=== PATIENT | female | born 1960 | race Caucasian/White ===

== ENCOUNTER 2022-12-30 15:48 | Emergency (ER) | payer OTHER, SELFPAY ==
[2022-12-30] VITALS (12 sets, daily range): BP systolic 121–143; BP diastolic 67–75; PULSE 66–89; RESP 15–21; TEMP 36.8; O2SAT 94–97; BMI 21.2
--- NOTE | 2022-12-30 16:06 | DI.CT.S_ITS ---
PROCEDURE: CT HEAD/BRAIN WO CON INDICATIONS: LOPEZ:h/o subdural / subarachnoid, just d/c from [facility] TECHNIQUE: Noncontrast 4.5 mm thick angled axial sections acquired from the foramen magnum to the vertex, with coronal and sagittal reformats. For radiation dose reduction, the following was used: automated exposure control, adjustment of mA and/or kV according to patient size. COMPARISON: None. FINDINGS: Image quality: Excellent. CSF spaces: There is right frontal subdural hematoma measuring 5 mm in thickness along the right cerebral convexity and tentorium. Mixed attenuation in subdural hematomas suggest acute bleed superimposed on subacute bleed. There is also subarachnoid hemorrhage in the frontal lobes bilaterally. Basal cisterns are patent. The ventricles are symmetric in size and shape. Brain: Bilateral makes subarachnoid in intraparenchymal hematomas are present involving the frontal lobes, right greater than left. Hypodensities in frontal lobes bilaterally are consistent with contusions. There is mass effect causing leftward midline shift measuring 18 mm. The abnormality in the right frontal area measures 5.6 x 5.6 cm. Abnormality in the left frontal lobe measures 2.0 x 2.6 cm. There is likely acute hemorrhage with hyperdense blood in frontal lobes superimposed on subacute hemorrhage. Hypodensity in the left cerebellum is noted with small foci of hyperdensity, likely secondary to in subacute hemorrhagic contusion. No intracranial masses. There is cerebral volume loss for age, with resultant ventricular and sulcal prominence. There are periventricular and deep white matter chronic small vessel ischemic changes. There is intracranial internal carotid artery atherosclerosis. Skull and face: There is nondisplaced fracture in the left occipital bone. A skin staple is seen in the left occipital area. Sinuses: Visualized sinuses and mastoids are clear. IMPRESSION: There is intracranial bleed bilaterally. 1. There is mixed subarachnoid and intraparenchymal hematomas in frontal lobes, larger on the right and small on the left. There is significant mass effect with 18 mm midline shift consistent with subfalcine herniation. Mixed attenuation suggesting acute bleed superimposed on subacute bleed. 2. Involving left cerebellar intraparenchymal hematoma. 3. Subdural hematoma in the right hemisphere measuring 5 mm in thickness. Mixed attenuation suggesting acute bleed superimposed on chronic bleed. 4. Nondisplaced fracture in the left occipital bone The result was discussed with Dr. Hairston in ER. Dictated by: Harish Nelson M.D. on 12/30/2022 at 16:22 Approved by: Harish Nelson M.D. on 12/30/2022 at 16:36
--- NOTE | 2022-12-30 16:30 | ED.HA ---
HPI - Headache General Chief Complaint: Headache Stated Complaint: headache, sent home from [facility] yesterday Time Seen by Provider: 12/30/22 16:21 Mode of arrival: Ambulatory History of Present Illness HPI Narrative: This is a 62-year-old female with history of traumatic head bleed on 12/26/2022 while ice skating. Patient had no reported medical issues prior to this. She had right frontal hemorrhagic contusion 4 x 3 x 3.4 cm with a small left inferior frontal lobe contusion 2.1 cm with moderate local mass effect 5 mm right to left midline shift any stable but slightly enlarging 2.5 cm hypodensity left cerebellum. She had some asymmetric effacement of right cerebral sulci. Patient was treated at [facility] in [place], was discharged home on oral Keppra for potential seizure prophylaxis. Patient states she had acute onset of headache today describes 11/21. She has not had any acute vision changes, she is had nausea but no vomiting. No chest pain, no shortness of breath, no numbness, tingling or weakness. She describes dizziness when moving from position from lying to sitting or sitting to standing. She states that was present before she left the hospital in [place]. Family assist her with movement. She is not appreciate any weakness left versus right or new balance or gait issues other than her dizziness. Patient is not anticoagulated and was not prior. No known drug allergies. Denies tobacco, alcohol or illicit. She is accompanied by her and daughter who state she appears to be at her normal baseline from discharge. She is had Tylenol for pain but no other medications for headaches. Related Data Allergies Allergy/AdvReac Type Severity Reaction Status Date / Time No Known Drug Allergies Allergy Verified 12/30/22 16:24 Review of Systems Review of Systems ROS Unobtainable: All systems reviewed & are unremarkable except as noted in HPI and below Patient History Social History Smoking Status: Never smoker Smoking Status: Never smoker alcohol intake frequency: 0-2 drinks per day Substance Use Type: does not use Exam Initial Vital Signs Initial Vital Signs: Vital Signs Temperature 98.3 F 12/30/22 15:59 Pulse Rate 89 12/30/22 15:59 Respiratory Rate 20 12/30/22 15:59 Blood Pressure 121/68 12/30/22 15:59 Pulse Oximetry 97 12/30/22 15:59 Oxygen Delivery Method Room Air 12/30/22 15:59 Course Orders Ordered: ED Orders 12/30/22 16:06 CT head/brain wo con Stat 12/30/22 16:21 EKG-12 Lead Stat 12/30/22 16:50 Complete Blood Count AUTO DIFF Stat Comprehensive Metabolic Panel Stat Ethanol (ETOH) Stat Lactate (Lactic Acid) Stat Lipase Stat PTT Partial Thromboplastin Luciano Stat Prothrombin Time INR Stat Type and Screen Stat Discontinued Medications Hydromorphone HCl (Hydromorphone 0.5 Mg Inj) 0.5 mg IV NOW ONE Stop: 12/30/22 17:20 Last Admin: 12/30/22 17:28 Dose: Not Given Documented By: AMV Lidocaine HCl (Lidocaine 2% Inj Sdv 5ml) 5 ml INJ INTRA-OP ONE Stop: 12/30/22 17:21 Last Admin: 12/30/22 17:33 Dose: Not Given Documented By: AMV Morphine Sulfate (Morphine 4 Mg/Ml Inj) 4 mg IV NOW ONE Stop: 12/30/22 16:49 Last Admin: 12/30/22 16:58 Dose: 4 mg Documented By: AMV Morphine Sulfate (Morphine 2 Mg/Ml Inj) 2 mg IV NOW ONE Stop: 12/30/22 17:23 Last Admin: 12/30/22 17:28 Dose: 2 mg Documented By: AMV Ondansetron HCl (Ondansetron 4 Mg/2 Ml Inj) 4 mg IV NOW ONE Stop: 12/30/22 16:49 Last Admin: 12/30/22 16:59 Dose: 4 mg Documented By: AMV Vital Signs Vital signs: Vital Signs - 8 hr 12/30/22 15:59 12/30/22 16:10 12/30/22 16:33 Temperature 98.3 F Pulse Rate 89 78 72 Respiratory Rate 20 21 Blood Pressure 121/68 Pulse Oximetry 97 96 Oxygen Delivery Method Room Air 12/30/22 16:35 12/30/22 16:35 12/30/22 16:40 Temperature Pulse Rate 71 78 Respiratory Rate 19 21 Blood Pressure 134/69 Pulse Oximetry 97 97 Oxygen Delivery Method 12/30/22 16:50 12/30/22 17:00 12/30/22 17:00 Temperature Pulse Rate 75 72 Respiratory Rate 21 19 Blood Pressure 143/70 H Pulse Oximetry 97 97 Oxygen Delivery Method Room Air 12/30/22 17:05 12/30/22 17:05 12/30/22 17:10 Temperature Pulse Rate 73 Respiratory Rate 16 Blood Pressure 133/75 138/72 Pulse Oximetry 94 Oxygen Delivery Method 12/30/22 17:10 12/30/22 17:15 12/30/22 17:15 Temperature Pulse Rate 70 66 Respiratory Rate 16 15 Blood Pressure 138/68 Pulse Oximetry 97 96 Oxygen Delivery Method 12/30/22 17:20 12/30/22 17:20 12/30/22 17:25 Temperature Pulse Rate 67 69 Respiratory Rate 16 20 Blood Pressure 135/67 Pulse Oximetry 96 96 Oxygen Delivery Method 12/30/22 17:25 Temperature Pulse Rate Respiratory Rate Blood Pressure 140/69 Pulse Oximetry Oxygen Delivery Method MDM - Headache Lab Data 12/30/22 16:50 12/30/22 16:50 Labs: Lab Results 12/30/22 12/30/22 12/30/22 Range/Units 16:50 16:50 16:50 WBC 13.6 H (4.5-11.0) X10^3/uL RBC 4.28 (4.0-5.2) X10^6/uL Hgb 12.8 (12.0-16.0) g/dL Hct 37.6 (36-46) % MCV 87.8 (80-100) fL MCH 29.9 (26-34) PG MCHC 34.0 (30-36) % RDW 12.5 (11.6-14.8) % Plt Count 262 (150-400) X10^3/uL Neut % (Auto) 84.0 H (50-75) % Lymph % (Auto) 7.2 L (25-40) % [place] % (Auto) 8.3 (3-14) % Eos % (Auto) 0.2 L (2-4) % Baso % (Auto) 0.3 (0-2) % Neut # (Auto) 80664 H (3661-4281) /uL Lymph # (Auto) 1000 L (5279-8807) /uL [place] # (Auto) 1100 H (0-900) /uL Eos # (Auto) 0 (0-450) /uL Baso # (Auto) 0 (0-100) /uL PT 13.9 H (10.1-12.7) SECONDS INR 1.2 (0.9-1.3) APTT 31 (26-36) SECONDS Sodium 137 (137-145) mmol/L Potassium 3.1 L (3.4-5.1) mmol/L Chloride 99 (98-107) mmol/L Carbon Dioxide 29 (22-32) mmol/L BUN 16 (7-17) mg/dL Creatinine 0.59 (0.52-1.04) mg/dL Estimated GFR > 60 (>60) mL/min BUN/Creatinine Ratio 27.1 H (6-22) Glucose 111 H (80-110) mg/dL Lactate (0.7-2.1) mmol/L Calcium 9.0 (8.4-10.2) mg/dL Total Bilirubin 1.3 (0.2-1.3) mg/dL AST 42 H (14-36) IU/L ALT 50 H (<35) IU/L Alkaline Phosphatase 64 (38-126) U/L Total Protein 7.5 (6.3-8.2) g/dL Albumin 4.1 (3.5-5.0) g/dL Globulin 3.4 (1.7-4.1) g/dL Albumin/Globulin Ratio 1.2 (1.0-2.8) Lipase 211 (23-300) U/L Ethyl Alcohol < 10 ( - 10) mg/dL Blood Type Antibody Screen 12/30/22 12/30/22 Range/Units 16:50 16:50 WBC (4.5-11.0) X10^3/uL RBC (4.0-5.2) X10^6/uL Hgb (12.0-16.0) g/dL Hct (36-46) % MCV (80-100) fL MCH (26-34) PG MCHC (30-36) % RDW (11.6-14.8) % Plt Count (150-400) X10^3/uL Neut % (Auto) (50-75) % Lymph % (Auto) (25-40) % [place] % (Auto) (3-14) % Eos % (Auto) (2-4) % Baso % (Auto) (0-2) % Neut # (Auto) (1781-8279) /uL Lymph # (Auto) (2662-5187) /uL [place] # (Auto) (0-900) /uL Eos # (Auto) (0-450) /uL Baso # (Auto) (0-100) /uL PT (10.1-12.7) SECONDS INR (0.9-1.3) APTT (26-36) SECONDS Sodium (137-145) mmol/L Potassium (3.4-5.1) mmol/L Chloride (98-107) mmol/L Carbon Dioxide (22-32) mmol/L BUN (7-17) mg/dL Creatinine (0.52-1.04) mg/dL Estimated GFR (>60) mL/min BUN/Creatinine Ratio (6-22) Glucose (80-110) mg/dL Lactate 1.4 (0.7-2.1) mmol/L Calcium (8.4-10.2) mg/dL Total Bilirubin (0.2-1.3) mg/dL AST (14-36) IU/L ALT (<35) IU/L Alkaline Phosphatase (38-126) U/L Total Protein (6.3-8.2) g/dL Albumin (3.5-5.0) g/dL Globulin (1.7-4.1) g/dL Albumin/Globulin Ratio (1.0-2.8) Lipase (23-300) U/L Ethyl Alcohol ( - 10) mg/dL Blood Type A Positive Antibody Screen Negative Imaging Data CT scan - head: Radiologist's Impression: Close Head CT (Signed) Harish Nelson - 12/30/22 Launch?[place] [id number] CT Scan Report Signed Patient: Fernanda Gay MR#: [id number] : 1960 Acct:[id number] Age/Sex: 62 / F Date of Service: 12/30/22 Loc: ED Accession Number: [id number] ?? Procedure: CT head/brain wo con Ordering Provider: Verónica Hairston D.O. PROCEDURE:? CT HEAD/BRAIN WO CON ? INDICATIONS:? LOPEZ:h/o subdural / subarachnoid, just d/c from [facility]- ? TECHNIQUE:? Noncontrast 4.5 mm thick angled axial sections acquired from the foramen magnum to the vertex, with coronal and sagittal reformats.? For radiation dose reduction, the following was used:? automated exposure control, adjustment of mA and/or kV according to patient size.? ? COMPARISON:? None. ? FINDINGS:? Image quality:? Excellent.? ? CSF spaces:? There is right frontal subdural hematoma measuring 5 mm in thickness along the right cerebral convexity and tentorium.? Mixed attenuation in subdural hematomas suggest acute bleed superimposed on subacute bleed.? ? There is also subarachnoid hemorrhage in the frontal lobes bilaterally. ? Basal cisterns are patent.? The ventricles are symmetric in size and shape.? ? Brain:? Bilateral makes subarachnoid in intraparenchymal hematomas are present involving the frontal lobes, right greater than left.? Hypodensities in frontal lobes bilaterally are consistent with contusions.? There is mass effect causing leftward midline shift measuring 18 mm.? The abnormality in the right frontal area measures 5.6 x 5.6 cm.? Abnormality in the left frontal lobe measures 2.0 x 2.6 cm.? There is likely acute hemorrhage with hyperdense blood in frontal lobes superimposed on subacute hemorrhage. ? Hypodensity in the left cerebellum is noted with small foci of hyperdensity, likely secondary to in subacute hemorrhagic contusion. ? No intracranial masses.? There is cerebral volume loss for age, with resultant ventricular and sulcal prominence.? There are periventricular and deep white matter chronic small vessel ischemic changes.? There is intracranial internal carotid artery atherosclerosis.? ? Skull and face:? There is nondisplaced fracture in the left occipital bone.? A skin staple is seen in the left occipital area.? ? Sinuses:? Visualized sinuses and mastoids are clear.? ? IMPRESSION:? There is intracranial bleed bilaterally.? ? 1. There is mixed subarachnoid and intraparenchymal hematomas in frontal lobes, larger on the right and small on the left.? There is significant mass effect with 18 mm midline shift consistent with subfalcine herniation.? Mixed attenuation suggesting acute bleed superimposed on subacute bleed. ? 2. Involving left cerebellar intraparenchymal hematoma. ? 3. Subdural hematoma in the right hemisphere measuring 5 mm in thickness. Mixed attenuation suggesting acute bleed superimposed on chronic bleed.? ? ? 4. Nondisplaced fracture in the left occipital bone ? The result was discussed with Dr. Hairston in ER. ? Dictated by: Harish Nelson M.D. on 12/30/2022 at 16:22 ? ? Approved by: Harish Nelson M.D. on 12/30/2022 at 16:36?? ECG Data Attestation: I personally reviewed and interpreted this ECG as follows: Interpretation: Sinus rhythm rate of 73 TX 142 QRS 84 QTC 451. No acute ST elevation. MDM Narrative Medical decision making narrative: This is a 62-year-old female with recent known dramatic intracranial bleed. Patient had new headache today no new trauma or injury. Increased pain 6/10, no acute neurologic changes. Vitals blood pressure is 1 20 to 130s here in the emergency department. Patient's overall neurologically intact, alert and oriented x4 and appropriate and maintaining airway. Patient's family brought her CT reports and appears she has had increase she had a 4 x 3 x 3-1/2 cm bleed as well as several other small bleeds appears to have increased in size today to 5.6 x 5.6. Mass effect was 5 mm on report from 12/27/22 and is [address] Nelson from radiology called results, appears to have acute on chronic bleed. Patient head of bed at 30 degrees. Case was discussed with [facility], Dr. Rivera accepts for transfer. Plan for ED to ED transfer to [facility] ED. Critical Care Time Critical Care Time Critical Care Time: Yes Total Critical Care Time: 30 Attestation: The high probability of a clinically significant, sudden or life threatening deterioration of the [neuro] system(s) required my full and direct attention, intervention and personal management. The aggregate critical care time was [] minutes. This time is in addition to time spent performing reported procedures but includes the following: [x] Data Review and interpretation [x] Patient assessment and monitoring of vital signs [x] Documentation [x] Medication orders and management Discharge Plan Departure Patient Disposition: [facility] Clinical Impression: Intracranial hemorrhage, Subarachnoid hemorrhage following injury
[2022-12-30] MEDS: MORPHINE 4 MG/ML INJ IV (16:58)
[2022-12-30] MEDS: ONDANSETRON 4 MG/2 ML INJ IV (16:59)
--- NOTE | 2022-12-30 17:05 | PC.NURSE ---
Pt has a recent hx of head bleed. Was treated at [facility] and d/c yesterday. Pt states that at 1000 today her mild normal LOPEZ became worse. She states that since this occurred that she has been off balance and needs ambulation assistance and no changes in that or speech have arisen.
[2022-12-30 17:07] LABS: Add Manual Diff / Slide Review NO; Basophils Absolute Auto 0 /uL (0-100); Basophils Percent Auto 0.3 % (0-2); Eosinophils Absolute Auto 0 /uL (0-450); Eosinophils Percent Auto 0.2 % (2-4); Hematocrit 37.6 % (36-46); Hemoglobin 12.8 g/dL (12.0-16.0); Lymphocytes Absolute Auto 1000 /uL (1100-4500); Lymphocytes Percent Auto 7.2 % (25-40); Mean Corpuscular Hemoglobin 29.9 PG (26-34); Mean Corpuscular Volume 87.8 fL (80-100); Monocytes Absolute Auto 1100 /uL (0-900); Monocytes Percent Auto 8.3 % (3-14); Neutrophils Absolute Auto 11500 /uL (1500-7000); Platelet Count 262 X10^3/uL (150-400); Red Blood Cell Count 4.28 X10^6/uL (4.0-5.2); Red Cell Distribution Width 12.5 % (11.6-14.8); White Blood Cell Count 13.6 X10^3/uL (4.5-11.0)
[2022-12-30 17:13] LABS: INR 1.2 (0.9-1.3); Prothrombin Time 13.9 SECONDS (10.1-12.7)
[2022-12-30 17:16] LABS: PTT Partial Thromboplastin Tim 31 SECONDS (26-36)
[2022-12-30 17:17] LABS: Lactate (Lactic Acid) 1.4 mmol/L (0.7-2.1)
[2022-12-30 17:19] LABS: Alanine Aminotransferase 50 IU/L (<35); Albumin 4.1 g/dL (3.5-5.0); Albumin Globulin Ratio 1.2 (1.0-2.8); Alkaline Phosphatase 64 U/L (38-126); Aspartate Aminotransferase 42 IU/L (14-36); BUN Creatinine Ratio 27.1 (6-22); Bilirubin Total 1.3 mg/dL (0.2-1.3); Blood Urea Nitrogen 16 mg/dL (7-17); Carbon Dioxide 29 mmol/L (22-32); Chloride 99 mmol/L (98-107); Estimated Glomerular Filt Rate > 60 mL/min (>60); Ethanol (ETOH) < 10 mg/dL; Globulin 3.4 g/dL (1.7-4.1); Glucose 111 mg/dL (80-110); HEMOLYSIS < 15 (0-50); Lipase 211 U/L (23-300); Potassium 3.1 mmol/L (3.4-5.1); Sodium 137 mmol/L (137-145); Total Protein 7.5 g/dL (6.3-8.2)
[2022-12-30] MEDS: MORPHINE 2 MG/ML INJ IV (17:28)
--- NOTE | 2022-12-30 17:36 | PC.NURSE ---
[facility]
== END 2022-12-30 17:36 | disposition short-term general hospital (02) ==
PROVIDERS: Emergency Provider Emergency Medicine
DX: S06.6XAA Traumatic subarachnoid hemorrhage with loss of consciousness status unknown, initial encounter (principal); V00.21 Ice-skates accident
CPT/HCPCS: 36415; 70450; 80053; 80320; 83605; 83690; 85025; 85610; 85730; 86850; 86900; 86901; 93005; 96374; 96375; 96376; 99284; 99291; 99292; J2270; J2405